=== PATIENT | female | born 1980 | race American Indian/Alaskan Native ===

== ENCOUNTER 2021-10-28 09:18 | Emergency (ER) | payer SELFPAY ==
[2021-10-28] MEDS ORDERED: IPRATROPIUM 0.02% NEBU 2.5 ML IH ONE (11:11)
[2021-10-28] MEDS ORDERED: SODIUM CHLORIDE 0.9% 500 ML 500 ML IV ONE (11:11)
[2021-10-28] MEDS ORDERED: ALBUTEROL 2.5 MG/3 ML NEBU IH ONE (11:11)
[2021-10-28] MEDS ORDERED: ONDANSETRON 4 MG/2 ML INJ IV ONE (11:12)
[2021-10-28] MEDS ORDERED: MORPHINE 4 MG/1 ML INJ IV ONE (11:12)
--- NOTE | 2021-10-28 11:41 | XRay Report ---
CHEST 1 VIEW 10/28/2021 10:35 AM INDICATION / CLINICAL INFORMATION: Dyspnea. COMPARISON: None available. FINDINGS: SUPPORT DEVICES: None. HEART / MEDIASTINUM: Mild cardiomegaly LUNGS / PLEURA: Mild central pulmonary venous congestion is suspected. Possible small left pleural ef fusion. The lungs are clear otherwise. No pneumothorax. ADDITIONAL FINDINGS: No significant additional findings. IMPRESSION: 1. Mild CHF Signer Name: Joesph Tucker Jr, MD Signed: 10/28/2021 11:37 AM Workstation Name: [id number]
[2021-10-28 12:00] LABS: Basophils % (Auto) 0.6 % (0.0-1.8); Hematocrit 27.3 % (30.3-42.9); Hemoglobin 9.1 gm/dl (10.1-14.3); Lymphocytes # (Auto) 0.4 K/mm3 (1.2-5.4); Lymphocytes % (Auto) 11.9 % (13.4-35.0); Mean Corpuscular HGB Conc 33 % (30-34); Mean Corpuscular Volume 81 fl (79-97); Monocytes # (Auto) 0.3 K/mm3 (0.0-0.8); Monocytes % (Auto) 7.9 % (0.0-7.3); Platelet Count 125 K/mm3 (140-440); Red Blood Count 3.38 M/mm3 (3.65-5.03); Red Cell Distribution Width 19.2 % (13.2-15.2)
[2021-10-28 12:23] LABS: Creatine Kinase MB 8.4 ng/mL (0.0-4.0)
[2021-10-28 12:24] LABS: Alanine Aminotransferase 29 units/L (7-56); Albumin 4.1 g/dL (3.9-5); BUN/Creatinine Ratio 5; Blood Urea Nitrogen 5 mg/dL (7-17); Calcium 8.1 mg/dL (8.4-10.2); Hemolysis Index 11
[2021-10-28] MEDS ORDERED: POTASSIUM CHLORIDE ER 20 MEQ TAB PO ONE (12:27)
[2021-10-28 12:32] LABS: INR 0.97 (0.87-1.13)
--- NOTE | 2021-10-28 13:44 | Electrocardiograph Report ---
[facility] Test Date: 2021-10-28 Test Time: 10:18:30 Pat Name: JILLIAN SEN Department: Room: Gender: F Digital Developer: 911 : 1980 Requested By: CHRISTOPHER VARGAS Order Number: [id number] Reading MD: Margie Juarez Measurements Intervals [place] Rate: 80 P: 4 NV: 181 QRS: -21 QRSD: 111 T: 164 QT: 427 QTc: 486 Interpretive Statements Sinus rhythm Low voltage, extremity and precordial leads Consider old anterolateral infarct Nonspecific T abnormalities, lateral leads No previous ECG available for comparison Electronically Signed On 10-28-2021 13:43:45 EDT by Margie Juarez
--- NOTE | 2021-10-28 15:19 | Cat Scan Report ---
CT ABDOMEN AND PELVIS WITHOUT IV CONTRAST INDICATION: Abdominal pain not otherwise specified. COMPARISON: None available. TECHNIQUE: All CT scans at this facility use dose modulation, automated exposure control, iterative reconstructi on or weight based dosing, when appropriate, to reduce radiation dose to as low as reasonably achieva ble. FINDINGS: Lung Bases: Mild airspace disease in the dependent lung bases, left greater than right, a be atelecta tic. There is trace pericardial fluid. Skeletal System: No acute abnormality. ABDOMEN: Liver: Liver is mildly enlarged with relative enlargement of the left and caudate lobes with respect to the right lobe. There is also mild lobularity. Gallbladder: No significant abnormality. Bile Ducts: No significant abnormality. Adrenals: No significant abnormality. Right Kidney: No significant abnormality. Left Kidney: No significant abnormality. Pancreas: No significant abnormality. Spleen: No significant abnormality. Upper GI tract: No significant abnormality. Lymph Nodes: No significant adenopathy. Aorta: No significant abnormality. Additional Findings: Rectus diastases is noted at the umbilicus. PELVIS: Colon: No acute abnormality. Urinary Bladder and Distal Ureters: No significant abnormality. Appendix: No significant abnormality. Lymph Nodes: No significant adenopathy. Additional Findings: None. IMPRESSION: 1. Within the limitations of non contrast technique, no acute process in the abdomen or pelvis. 2. Liver is mildly enlarged with relative enlargement of the left and caudate lobes with respect to the right lobe and there is mild surface irregularity. These findings could be related to hepatomegal y. However, early cirrhotic liver could have this appearance. 3. Additional incidental findings as above. Signer Name: Shane Mejía MD Signed: 10/28/2021 3:15 PM Workstation Name: [id number]
[2021-10-28 17:34] LABS: Amphetamine Screen,Urine Negative; Benzodiazepines Screen,Urine Negative; Cannabinoid Screen,Urine Negative; Cocaine Screen,Urine Negative; Methadone Screen,Urine Negative; Opiate Screen,Urine Negative
[2021-10-28 18:21] LABS: Color,Urine Straw (Yellow)
--- NOTE | 2021-10-28 18:33 | Emergency Department Report ---
ED General Adult HPI - General Chief complaint: Dyspnea/Respdistress Stated complaint: HAVING TROUBLE BREATHING PUI?: No Time Seen by Provider: 10/28/21 11:05 Source: EMS Mode of arrival: Stretcher Limitations: No Limitations - History of Present Illness Initial comments: pt here with multiple complaints, reports manju x 2 weeks, abdominal pain, chest pain. o2 was 88-96% on RA, placed on 2 liters NC, -: Gradual, days(s) Location: chest Radiation: non-radiation Severity scale (0 -10): 0 Consistency: intermittent Improves with: none Worsens with: none Associated Symptoms: cough. denies: denies other symptoms, confusion Treatments Prior to Arrival: none - Related Data Previous Rx's Medication Instructions Recorded Last Taken Type Amoxicillin/K Clav Tab [Augmentin 1 tab PO Q12HR #14 tab 10/28/21 Unknown Rx 875 mg] Allergies Allergy/AdvReac Type Severity Reaction Status Date / Time No Known Allergies Allergy Verified 10/28/21 09:48 ED Review of Systems ROS: Stated complaint: HAVING TROUBLE BREATHING Other details as noted in HPI Constitutional: denies: chills, fever Eyes: denies: eye pain, eye discharge, vision change ENT: denies: ear pain, throat pain Respiratory: denies: cough, shortness of breath, wheezing Cardiovascular: denies: chest pain, palpitations Endocrine: no symptoms reported Gastrointestinal: denies: abdominal pain, nausea, diarrhea Genitourinary: denies: urgency, dysuria, discharge Musculoskeletal: denies: back pain, joint swelling, arthralgia Skin: denies: rash, lesions Neurological: denies: headache, weakness, paresthesias Psychiatric: denies: anxiety, depression Hematological/Lymphatic: denies: easy bleeding, easy bruising ED Past Medical Hx - Past Medical History Previous Medical History?: Yes Hx Hypertension: Yes Hx Congestive Heart Failure: Yes Hx Diabetes: Yes Additional medical history: thyroid - Social History Smoking Status: Never Smoker Substance Use Type: None - Medications Home Medications: Home Medications Medication Instructions Recorded Confirmed Last Taken Type Amoxicillin/K Clav Tab [Augmentin 1 tab PO Q12HR #14 tab 10/28/21 Unknown Rx 875 mg] ED Physical Exam - General Limitations: No Limitations General appearance: alert, obese - Head Head exam: Present: atraumatic, normocephalic - Eye Eye exam: Present: normal appearance - ENT ENT exam: Present: mucous membranes moist - Neck Neck exam: Present: normal inspection - Respiratory Respiratory exam: Present: normal lung sounds bilaterally. Absent: respiratory distress - Cardiovascular Cardiovascular Exam: Present: regular rate, normal rhythm. Absent: systolic murmur, diastolic murmur, rubs, gallop - GI/Abdominal GI/Abdominal exam: Present: soft, normal bowel sounds - Extremities Exam Extremities exam: Present: normal inspection - Back Exam Back exam: Present: normal inspection - Neurological Exam Neurological exam: Present: alert, oriented X3 - Psychiatric Psychiatric exam: Present: normal affect, normal mood - Skin Skin exam: Present: warm, dry, intact, normal color. Absent: rash ED Course Vital Signs 10/28/21 10/28/21 10/28/21 09:43 10:07 12:11 Temperature 98.4 F 98.4 F Pulse Rate 89 84 84 Pulse Rate [ Anterior] Pulse Rate [ Posterior] Respiratory 16 22 22 Rate Respiratory Rate [Anterior] Respiratory Rate [Posterior ] Blood Pressure 137/95 Blood Pressure 126/76 137/95 134/78 [Left] O2 Sat by Pulse 98 94 100 Oximetry 10/28/21 10/28/21 10/28/21 12:50 16:30 18:20 Temperature 98.4 F Pulse Rate 80 76 Pulse Rate [ 102 H Anterior] Pulse Rate [ 88 Posterior] Respiratory 20 20 Rate Respiratory 20 Rate [Anterior] Respiratory 18 Rate [Posterior ] Blood Pressure Blood Pressure 121/86 127/59 [Left] O2 Sat by Pulse 94 96 Oximetry ED Medical Decision Making - Lab Data Result diagrams: 10/28/21 11:43 10/28/21 11:43 - EKG Data -: EKG Interpreted by Wa EKG shows normal: sinus rhythm - EKG Data Interpretation: nonspecific ST-T wave alessio - Radiology Data Radiology results: report reviewed, image reviewed - Medical Decision Making work up showed elevated ck, normal trop non specific ekg, vss nod sitress ct negative Critical care attestation.: If time is entered above; I have spent that time in minutes in the direct care of this critically ill patient, excluding procedure time. ED Disposition Clinical Impression: SOB (shortness of breath), CHF (congestive heart failure) Disposition: 01 HOME / SELF CARE / HOMELESS Is pt being admited?: No Does the pt Need Aspirin: No Condition: Stable Instructions: Shortness of Breath, Adult, [id number] Referrals: WAGNER EVANS MD [Primary Care Provider] - 3-5 Days
[2021-10-28 22:47] VITALS: BP 133/68
== END 2021-10-28 23:30 | disposition home or self-care (01) ==
LOC: ED 09:18
DX: R06.02 Shortness of breath (principal); I50.9 Heart failure, unspecified; I10 Essential (primary) hypertension; E11.9 Type 2 diabetes mellitus without complications; Z79.899 Other long term (current) drug therapy
CPT/HCPCS: 36415; 71045; 74176; 80053; 80307; 81001; 82010; 82140; 82550; 82553; 83690; 83735; 83880; 84484; 85025; 85610; 86140; 93005; 94640; 96361; 96374; 96375; 99285; J2270; J2405; J7040; 94644